=== PATIENT | female | born 1950 | race Caucasian/White ===

== ENCOUNTER 2016-11-06 20:56 | Emergency (ER) | payer MEDICARE ==
--- NOTE | ~2016-11-06 | CT2 ---
[facility] A Service of [facility] RADIOLOGY TEXT RESULTS PATIENT: ELAINE CHEN LOCATION: [facility] : 54 UNIT #: [id number] AGE: [address]: Frank Krishnamurthy MD SEX: F ORDER DR: [id number] [facility] [address] [place], [place] [address] [id number] MR#: [id number] Acc #: [id number] NAME: ELAINE CHEN : 1950 SEX: F STUDY DATE/TIME: 11/06/2016 22:09 UNIT: [facility] ROOM: STUDY DESCRIPTION: CT Abd and Pelv W Cont Attending Physician: Frank Krishnamurthy M.D. Ordering Physician: Frank Krishnamurthy M.D. Primary Care Physician: Franco Murray M.D. MEDICAL IMAGING REPORT This report is preliminary unless electronic signature is present EXAM CT abdomen and pelvis 11/06 INDICATIONS Vaginal pain and burning for the last 3 days. Pain rates 8 out of 10. TECHNIQUE Axial images were obtained through the abdomen and pelvis following IV contrast administration. Multiplanar reformats were obtained. This CT exam was performed with one or more of the following radiation dose reduction techniques: automatic exposure control, adjustment of mA and/or kV according to patient size, and iterative reconstruction. COMPARISON STUDIES No comparison. FINDINGS ABDOMEN: Lung bases are clear. There is atherosclerotic disease. Gallbladder has been removed. There is no biliary obstruction. There is a cyst in the inferior right hepatic lobe measuring up to about 3.8 cm. Solid organs are otherwise normal. There is no free fluid or adenopathy. Unopacified GI tract is normal. PELVIS: The uterus is surgically absent. Urinary bladder is normal. There is mild sigmoid diverticulosis, but no diverticulitis is seen. The GI tract, including the appendix, is otherwise normal. There is no free fluid. There is an area of induration on the left labia majora. Correlate with physical exam findings. No drainable abscess is seen. Also noted is an enlarged left inguinal node which is probably reactive. 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 STS. [facility] A Service of [facility] RADIOLOGY TEXT RESULTS PATIENT: ELAINE CHEN LOCATION: [facility] : 54 UNIT #: [id number] AGE: [address]: Frank Krishnamurthy MD SEX: F ORDER DR: IMPRESSION 1. Area of induration in the left labia majora. No drainable fluid collection is seen. 2. Presumed reactive lymph node in the left groin. 3. Sigmoid diverticulosis but no diverticulitis. 4. The GI tract, including the appendix, is normal. 5. Hysterectomy and cholecystectomy. 6. Hepatic cysts. 7. Atherosclerotic disease. 8. Fairly extensive degenerative disease in the visualized spine. Dictated by... Abdirizak Mcgill Jr., M.D. THIS IS AN ELECTRONICALLY VERIFIED REPORT Abdirizak Mcgill Jr., M.D. at 11/07/2016 8:01 AM MAURA/marciano TD: 11/06/2016 23:03 JOB #: [id number] MEDICAL IMAGING REPORT Page 1 of 1 COPY
[~2016-11-06 20:56] MED LIST: ACCUPRIL PO; ASPIRIN81 M2 PO; CHOLESTEROL PILL; CIPRO250 M1 PO; COUMADIN; HYDROCHLOROTHIA25 MG PO; METOPROLOL TAR100 MG PO; NEURONTIN300 MG PO; NORVASC10 MG PO
[2016-11-06 21:05] LABS: BASOPHIL# 0.1 X10e3 (0-0.3); EOSINOPHIL# 0.1 X10e3 (0-0.7); EOSINOPHIL% 1.6 % (0.0-7.0); HEMATOCRIT 43.4 % (35.0-45.0); HEMOGLOBIN 14.9 gm/dL (12.0-16.0); LYMPHOCYTE# 2.1 X10e3 (1.0-3.5); LYMPHOCYTE% 23.9 % (17.0-45.0); MEAN CELL VOLUME 94.3 FL (83-96); MEAN CORPUSCULAR HEMOGLOBIN 32.3 PG (28-34); MEAN CORPUSCULAR HGB CONC 34.2 g/dL (30-36); MEAN PLATELET VOLUME 7.6 FL (6.5-11.5); MONOCYTE# 0.7 X10e3 (0-1.0); MONOCYTE% 7.7 % (3.0-12.0); NEUTROPHIL# 5.8 X10e3 (1.5-7.1); NEUTROPHIL% 65.8 % (40-75); PLATELET COUNT 306 X10e3 (140-420); RED BLOOD COUNT 4.61 X10e (3.90-5.30); RED CELL DISTRIBUTION WIDTH 13.4 % (11.0-15.5); WHITE BLOOD COUNT 8.8 X10e3 (4.0-10.5)
[2016-11-06 21:06] LABS: DIFF IND NO
[2016-11-06 21:11] LABS: URINE SOURCE CLEAN CATCH
[2016-11-06 21:19] LABS: URINE APPEARANCE CLOUDY; URINE BILIRUBIN NEG (NEG); URINE BLOOD NEG (NEG); URINE COLOR YELLOW; URINE GLUCOSE NEG (NEG); URINE KETONE TRACE (NEG); URINE LEUKOCYTE ESTERASE NEG (NEG); URINE NITRATE NEG (NEG); URINE PROTEIN NEG (NEG)
[2016-11-06 21:27] LABS: CULTURE INDICATED? NO
[2016-11-06 21:33] LABS: CALCIUM SERUM 9.7 mg/dL (8.4-10.2); GLOM FILT RATE Estimated 59.5 mL/min (>60); POTASSIUM 3.6 mmol/L (3.5-5.1)
[2016-11-06 21:40] LABS: INR 1.6; PARTIAL THROMBOPLASTIN TIME 34.9 SECONDS (23.5-31.3)
== END 2016-11-06 23:30 | disposition home or self-care (01) ==
LOC: CED 20:56
PROVIDERS: Emergency Medicine
DX: N76.2 Acute vulvitis (principal); I10 Essential (primary) hypertension; F17.210 Nicotine dependence, cigarettes, uncomplicated; Z86.73 Personal history of transient ischemic attack (TIA), and cerebral infarction without residual deficits; Z90.49 Acquired absence of other specified parts of digestive tract; Z90.710 Acquired absence of both cervix and uterus; Z79.01 Long term (current) use of anticoagulants
CPT/HCPCS: 36415; 51701; 74177; 80048; 81003; 85025; 85610; 85730; 96361; 96374; 96375; 99284; J2270; J2405; Q9967